=== PATIENT | female | born 1960 | race Caucasian/White ===

== ENCOUNTER 2017-11-14 07:52 | Emergency (ER) | payer OTHER ==
[2017-11-14 08:01] VITALS: RESP 18
[2017-11-14] MEDS ORDERED: IBUPROFEN 600 MG TAB PO ONE (08:12)
[2017-11-14] MEDS ORDERED: OXYCODONE/APAP 5/325 TAB PO ONE (08:29)
--- NOTE | 2017-11-14 09:35 | EDPHY ---
General - History Smoking Status: Never smoked Narrative: CHIEF COMPLAINT: Fall, right wrist pain HISTORY OF PRESENT ILLNESS: Patient complains of slipping on the ice falling on her into work today. This was in the parking lot of the hospital. She landed on outward distress right arm. She felt a sudden snap in pain right wrist. Significantly painful. Unable to range the wrist. Did not strike head or lose consciousness. She has pain only in the wrist and no headache neck pain, chest pain, back pain, abdominal pain or injury the left arm or either leg. No numbness or tingling. No weakness. No laceration or puncture. No position of comfort. No other associated complaints. ESTABLISHED ORTHOPEDIST: None REVIEW OF SYSTEMS: Ten systems reviewed and are negative unless otherwise noted in the HPI PAST MEDICAL HISTORY: Depression, hypothyroid PAST SURGICAL HISTORY: No recent surgical history SOCIAL HISTORY: Smoker. Lives and works locally FAMILY HISTORY: Noncontributory EXAMINATION General Appearance: Alert, no distress Cardiovascular: Symmetric radial pulses 2+. good signs of perfusion. Brisk cap refill Neurological: A&O, light sensation to the back of the hand is symmetric. Interossei strength symmetric. No wrist drop Skin: Warm and dry, no rash. No puncture, laceration or abrasion Extremities: Deformity of the right wrist with significant tenderness. Range of motion not tested due to deformity and pain. There is no tenderness of the snuffbox. No tenderness of the right elbow or shoulder. Neurovascular intact distally. Psychiatric: Mood and affect normal DIFFERENTIAL DIAGNOSES: Including but not limited to wrist fracture, wrist fracture dislocation, sprain , strain, MDM: 9:10 a.m. Comminuted displaced right wrist fracture with dorsal angulation. She is neuro intact. No evidence of acute carpal tunnel. I have administered a hematoma block and I will re-evaluate her. 9:45 a.m. Patient re-evaluated. She has significant proven in her pain after the hematoma block. I placed her in the finger traps and have him allowing her to hang to gravity at this time. 10:00 a.m. Patient has been in the finger traps for approximately 15 min. I attempted closed reduction of the wrist. I do have some successful reduction, but this spontaneously dislocated or subluxed. I will discuss with Orthopedics. She remains neuro intact postprocedure. 10:10 a.m. Case discussed with the on-call orthopedist Dr. Gallegos. He has reviewed the x- ray. He is requesting a CT scan of the wrist. He would like to see the patient today at 2:30 a.m. in his office. She is currently having a splint placed and then we will proceed with CT scan. 10:[address] and she is neurovascular intact. Proceed with CT and discharge. She will wait here on campus for her appointment at [address] Gallegos. Resting comfortably in no acute distress. PROCEDURE: Hematoma block Indication: Right wrist fracture with deformity Consent: Verbal Location: Right wrist Anesthesia: Lidocaine 1% plain, 0.25% Marcaine plain, 5mL Description: Area of the 4th identified and prepped with chlorhexidine. Using aseptic technique, 27 gauge needle was inserted to the area of fracture. Needle aspirated with hematoma return. Above was infused without difficulty or complication. Complications: None PROCEDURE: Closed reduction of right wrist Consent: Verbal Location: Right wrist Anesthesia: Hematoma block as above Procedure: After time-out and hematoma block the patient's fingers were placed in finger traps. She hung to gravity for 20 min. I attempted traction and counter traction. There was manipulation of the fracture segments but the spontaneously subluxed. Fractures 2 unstable. Complications: None SUPERVISION: Patient was independently examined, but I discussed the case with my secondary supervising physician Dr. Almazan ED Precautions: Worsening pain. Erythema, edema, cyanosis, pallor, paresthesia or anesthesia. (Aman Beard) The patient was evaluated and managed by the physician corporate law assistant. I have reviewed this chart and I agree with the findings and plan of care as documented , as indicated by my signature. I am the secondary supervising physician. ( Lilian Almazan) - Objective Vital Signs: Initial Vital Signs Temperature (C) 36.9 C 11/14/17 07:58 Heart Rate 82 11/14/17 07:58 Respiratory Rate 18 11/14/17 07:58 Blood Pressure 125/83 H 11/14/17 07:58 O2 Sat (%) 92 11/14/17 07:58 O2 Delivery Mode Room Air Allergies/Adverse Reactions: Sulfa (Sulfonamide Antibiotics) Allergy (Verified 11/14/17 08:00) Home Medications: Medication Instructions Recorded Levothyroxine [Synthroid 125 mcg 125 mcg PO DAILY06 11/14/17 (*)] lamoTRIgine [LamICTAL 100 MG (*)] 100 mg PO 11/14/17 oxyCODONE HCL/ACETAMINOPHEN 1 each PO Q4-6PRN PRN #20 tablet 11/14/17 [Percocet 5-325 mg Tablet] Medications Given: Discontinued Medications Ibuprofen (Motrin) 600 mg PO EDNOW ONE Stop: 11/14/17 08:13 Last Admin: 11/14/17 08:16 Dose: Not Given Oxycodone/Acetaminophen (Percocet 5/325) 1 tab PO EDNOW ONE Stop: 11/14/17 08:30 Last Admin: 11/14/17 08:31 Dose: 1 tab Departure - Departure Disposition: Home, Routine, Self-Care Clinical Impression: Fracture of radius, distal, right, closed Condition: Good Instructions: Wrist Fracture in Adults (ED), ORIF of a Wrist Fracture (DC) Additional Instructions: 1. Medication as prescribed as needed 2. You are scheduled for a 2:[address] Gallegos. Contact his office to confirm Referrals: Modesto Persaud MD [Primary Care Provider] - As per Instructions Archie Gallegos MD [Medical Doctor] - As per Instructions Prescriptions: oxyCODONE HCL/ACETAMINOPHEN [Percocet 5-325 mg Tablet] 1 each PO Q4-6PRN PRN # 20 tablet PRN Reason: Pain, Breakthrough
[2017-11-14 10:49] VITALS: BP 129/81; PULSE 71; TEMP 98.6; O2SAT 95
== END 2017-11-14 11:20 | disposition home or self-care (01) ==
DX: S52.501A Unspecified fracture of the lower end of right radius, initial encounter for closed fracture (principal); W01.0XXA Fall on same level from slipping, tripping and stumbling without subsequent striking against object, initial encounter; Y92.481 Parking lot as the place of occurrence of the external cause

== ENCOUNTER → 2018-09-08 | Outpatient (CLI) | payer OTHER | LOC: BMCIMAGING 11:00 | PROVIDERS: ATTEND Physician Assistant | DX: M25.551 Pain in right hip (principal); Z98.890 Other specified postprocedural states ==